=== PATIENT | female | born 1945 | race Caucasian/White ===

== ENCOUNTER → 2020-09-04 09:21 | Outpatient (CLI) | payer MEDICARE, SELFPAY | PROVIDERS: PCP Family Medicine; Visit Provider Family Medicine | DX: Z03.818 Encounter for observation for suspected exposure to other biological agents ruled out (principal) | CPT/HCPCS: U0003 ==

== ENCOUNTER → 2021-07-10 13:38 | Outpatient (CLI) | payer MEDICARE, SELFPAY | PROVIDERS: PCP Family Medicine; Visit Provider Family Medicine | DX: G47.33 Obstructive sleep apnea (adult) (pediatric) (principal) | CPT/HCPCS: 95806 ==

== ENCOUNTER 2021-11-28 09:13 | Emergency (ER) | payer MEDICARE, SELFPAY ==
[2021-11-28 09:45] VITALS: BP 140/88; PULSE 76; RESP 22; TEMP 36.8; O2SAT 97; BMI 23.7
[2021-11-28 10:13] LABS: Apearance,Urine Clear (Clear); Bilirubin,Urine Negative (Negative); Blood, Urine Negative (Negative); Color,Urine Yellow (Yellow); Glucose,Urine (UA) Negative (Negative); Ketones,Urine Negative (Negative); Protein,Urine 1+ (Negative); Specific Gravity, Urine 1.025 (1.005-1.030)
[2021-11-28 10:14] LABS: UTC Leukocyte Esterase,Urine Negative (Negative); UTC Nitrate,Urine Negative (Negative); Urobilinogen,Urine 0.2 EU/dl (0.2)
--- NOTE | 2021-11-28 10:17 | HMH.EDUTC ---
[facility] Disposition Clinical Impression: Viral syndrome Disposition: Home, Self-Care Condition on Discharge: Good Instructions: Diarrhea, DI for Viral Syndrome, DI for Nausea -- Adult Additional Instructions: Drink extra fluids with and between meals. If you have difficulty drinking, try very small amounts of water or suck on ice chips. ? Avoid fruit juices, as these do not replace minerals and can actually increase diarrhea. ? Children and adults can use sports drinks to replenish electrolytes. Younger children and infants should use products formulated for children, like oral rehydration solutions. ? Eat food in small amounts and let your stomach recover. ? Get lots of rest. You may feel tired or weak. ? No greasy or fried foods for the next 24-48 hours BRAT diet Bananas Rice Apples and [place] ? Make sure to drink plenty of liquids ? Return if needed ? Straight to ER if any life threatening symptoms ? Zofran as prescribed ? You was given an outpatient order for diarrhea panel, please collect specimen and bring back to outpatient lab then call back to the [facility] or follow up with family doctor for results ? Follow up with family doctor in the next 48-72 hours if no improvement or any worsening of symptoms You were tested for today for COVID19 your test result should be back in the next 24-48 hours, you may check the [facility] my Health portal for your results if you have trouble logging on or seeing your results you may call You was given a handout with instructions for Self Quarantine and Self isolation for while you wait on test results and what to do if they are positive If you are positive the Health Dept will be contacting you also Make sure to take your Vitamins Vit. C Vit D and Zinc if you can take them Prescriptions: Dicyclomine HCl [Bentyl 10mg capsule] 10 mg PO TID PRN #10 cap PRN Reason: Cramping Transmission Status: Pending to [facility] Ondansetron [Zofran 4mg ODT] 4 mg PO TIDP PRN #9 tab PRN Reason: Nausea Transmission Status: Pending to [facility] Referrals: Percy Del Cid [Primary Care Provider] - As needed Medical Decision Making - [place] Inquiry Pt receiving controlled substance: No [place] was queried for this patient: No Vital Signs: 11/28/21 09:45 Temperature 98.2 F Temperature Source Oral Pulse Rate [Right Brachial] 76 Respiratory Rate 22 Blood Pressure [Right Arm] 140/88 Blood Pressure Mean [Right Arm] 105 Blood Pressure Source [Right Arm] Automatic Cuff Blood Pressure Position [Right Arm] Sitting 02 Sat by Pulse Oximetry 97 Oxygen Delivery Method Room Air - Lab Data Lab Results 11/28/21 09:55: Urine Color Yellow, Urine Appearance Clear, Urine pH 5.0, Ur Specific [place] 1.025, Urine Protein 1+, Urine Glucose (UA) Negative, Urine Ketones Negative, Urine Blood Negative, Urine Nitrate Negative, Urine Bilirubin Negative, Urine Urobilinogen 0.2, Ur Leukocyte Esterase Negative Orders (Tests/Meds): ED MEDICATIONS Discontinued Medications Generic Name Dose Route Start Last Admin Trade Name Freq PRN Reason Stop Dose Admin Dicyclomine HCl 10 mg 11/28/21 10:32 11/28/21 10:41 Dicyclomine 10mg Capsule PO 11/28/21 10:33 10 mg ONCE ONE Administration Ondansetron HCl 4 mg 11/28/21 10:32 11/28/21 10:41 Ondansetron 4mg Odt SL 11/28/21 10:33 4 mg ONCE ONE Administration ORDERS Category Date Time Status Covid-19 Nasal PCR ([facility]) Routine Lab 11/28/21 10:37 Ordered [facility] HPI - General Stated complaint: diarrhea, nauseous Time Seen by Provider: 11/28/21 10:17 Mode of Arrival: Ambulatory Source of Information: Patient Limitations: No Limitations Description of Symptoms (Recalled from Triage Doc. by RN): PATIENT C/O DIARRHEA X 48 HOURS, NAUSEA X 12 HOURS, AND HEADACHE HEENT Symptoms (Recalled from RN notes): Yes Resp Symptoms (Recalled from RN notes): No Skin Symptoms (Recalled from RN notes): No MS Symptoms (Recalled from RN notes): No Functional
[2021-11-28 10:47] VITALS: BP 140/88; PULSE 76; RESP 22; TEMP 36.8; O2SAT 97
[2021-11-28 17:30] LABS: Adenovirus F 40/41, stool Not Detected (NotDetected); Astrovirus Not Detected (NotDetected); Campylobacter Not Detected (NotDetected); Clostridium Difficile A/B, PCR Not Detected (NotDetected); Cryptosporidium Not Detected (NotDetected); Cyclospora Cayetanesis Not Detected (NotDetected); Entamoeba histolytica Not Detected (NotDetected); Enteroaggregative E coli Not Detected (NotDetected); Enteropathogenic E coli Not Detected (NotDetected); Enterotoxigenic E coli Not Detected (NotDetected); Giardia lamblia Not Detected (NotDetected); Norovirus Not Detected (NotDetected); Plesimonas Shigalloides, PCR Not Detected (NotDetected); Rotavirus A Not Detected (NotDetected); Salmonella, PCR Not Detected (NotDetected); Sapovirus Not Detected (NotDetected); Shiga-like toxin E coli Not Detected (NotDetected); Shigella Enterovasive E coli Not Detected (NotDetected); Vibrio Cholerae Not Detected (NotDetected); Vibrio, PCR Not Detected (NotDetected); Yersinia Entercolitica, PCR Not Detected (NotDetected)
[2021-11-28 19:01] LABS: UTC Influenza A Antigen Negative (Negative); UTC Influenza B Antigen Negative (Negative)
== END 2021-11-28 10:55 | disposition home or self-care (01) ==
PROVIDERS: Emergency Provider Nurse Practitioner; PCP Family Medicine
DX: B34.9 Viral infection, unspecified (principal); Z20.822 Contact with and (suspected) exposure to COVID-19; I10 Essential (primary) hypertension; E78.5 Hyperlipidemia, unspecified; Z87.891 Personal history of nicotine dependence; R10.0 Acute abdomen; R19.7 Diarrhea, unspecified
CPT/HCPCS: 81003; 87507; 87804; 99202; C9803; G0463; U0003; U0005

== ENCOUNTER → 2022-01-19 09:20 | Outpatient (CLI) | payer MEDICARE, SELFPAY ==
--- NOTE | 2022-01-19 09:23 | XR_ITS ---
FINAL REPORT TECHNIQUE: Bone densitometry calculations of the lumbar spine and left hip were obtained. CLINICAL HISTORY: . post menopausal FINDINGS: Using L1-4, the bone mineral density of the spine is 0.853 g/cm2, corresponding to T-score of -1.8. Using the right hip, the bone mineral density of the femoral neck is 0.561 g/cm2, corresponding to a T-score of -2.6. Using the left forearm, the bone mineral density of the distal 1/3 is 0.495 g/cm2, corresponding to a T-score of -3.3. IMPRESSION: Osteoporosis: Lowest T-score is at or below -2.5. This patient's T-score meets the World Health Organization criteria for osteoporosis. Reviewed, Interpreted and Dictated by Francisco Javier Parada III, MD Transcribed by Leila Cristina Authenticated by Francisco Javier Parada III, MD on 01/19/2022 11:45:51 AM [facility]
== END ==
PROVIDERS: PCP Family Medicine; Visit Provider Family Medicine
DX: Z78.0 Asymptomatic menopausal state (principal)
CPT/HCPCS: 77080

== ENCOUNTER 2022-03-05 10:00 | Outpatient (RCR) | payer MEDICARE, SELFPAY | END 2022-03-05 10:05 | disposition home or self-care (01) | LOC: PT 10:00 | PROVIDERS: PCP Family Medicine; Visit Provider Orthopaedic Surgery | DX: M17.12 Unilateral primary osteoarthritis, left knee (principal) | CPT/HCPCS: 97110; 97163; 97164 ==

== ENCOUNTER → 2022-03-18 15:32 | Outpatient (CLI) | payer MEDICARE, SELFPAY ==
--- NOTE | 2022-03-18 15:37 | XR_ITS ---
FINAL REPORT CLINICAL HISTORY: Hammertoe pain FINDINGS: RIGHT FOOT Three weight-bearing views of the right foot demonstrate no acute fracture or dislocation. There is mild medial subluxation of the 2nd and 3rd proximal phalanges. The soft tissues are unremarkable. IMPRESSION: No acute bony abnormality. Mild medial subluxation of the 2nd and 3rd proximal phalanges. Reviewed, Interpreted and Dictated by Denzel Shipman MD Transcribed by Leila Cristina Authenticated by Denzel Shipman MD on 03/18/2022 06:04:17 PM [facility]
== END ==
PROVIDERS: Visit Provider Podiatrist
DX: M79.671 Pain in right foot (principal)
CPT/HCPCS: 73630

== ENCOUNTER 2024-11-03 07:59 | Emergency (ER) | payer MEDICARE, SELFPAY ==
[2024-11-03 08:28] VITALS: BP 158/73; PULSE 97; RESP 20; TEMP 37.2; O2SAT 97; BMI 25.4
--- NOTE | 2024-11-03 08:28 | ED_ITS ---
Discharge Plan Disposition Patient Disposition: Home, Self-Care Condition: Good Prescriptions Prescriptions: New amoxicillin 875 mg tablet 875 mg PO Q12H Qty: 20 0RF benzonatate 100 mg capsule 100 mg PO TIDP PRN (Reason: Cough) Qty: 30 0RF No Action hydrochlorothiazide 25 mg tablet 25 mg PO DAILY pantoprazole 40 mg tablet,delayed release (DR/EC) 40 mg PO DAILY metoprolol tartrate 50 mg tablet 50 mg PO DAILY pravastatin 40 mg tablet 40 mg PO DAILY Excedrin Extra Strength 250-250-65 mg tablet 1 tab PO Q4-6H PRN tramadol 50 mg tablet 50 mg PO BID alendronate 70 mg tablet 70 mg PO WEEKLY raloxifene 60 mg tablet 60 mg PO DAILY methylprednisolone [Medrol (Magno)] 4 mg tablets,dose pack 4 mg PO DAILY Qty: 21 0RF timolol maleate 0.5 % drops 1 drp OP BID Patient Comments: INSTILL 1 DROP IN BOTH EYES TWICE DAILY levothyroxine 88 mcg tablet 88 mcg PO DIRECTED Patient Comments: TAKE ONE TABLET BY MOUTH EVERY DAY Referrals Follow up/Referrals: Percy Del Cid [Primary Care Provider] - See instructions Activity Restrictions/Add. Instructions Additional Instructions/Restrictions: Drink plenty of fluids. Take tylenol for pain or fever. Take the medications as directed. Follow up with your regular doctor. GO TO THE ER FOR ANY WORSENING SYMPTOMS Clinical Impressions Clinical Impression: Acute viral syndrome, Sinusitis Instructions Patient Instructions: Sinusitis, DI for Sinusitis Print Language Print Language: Armenian Discharge ED Provider: Willie Gonzalez [facility] General Stated complaint: headache, chills Time Seen by Provider: 11/03/24 08:23 History of Present Illness Provider Complaint: She states that for the past 1 day she has had worsening sinus congestion, malaise, low grade fever and chills. Related Data Home Medications ?Medication ?Instructions ?Recorded ?Confirmed [id number]-[id number] 250 1 tab PO Q4-6H PRN 09/17/21 12/27/23 mg-250 mg-65 mg tablet (Excedrin Extra Strength) hydrochlorothiazide 25 mg tablet 25 mg PO DAILY 09/17/21 11/03/24 metoprolol tartrate 50 mg tablet 50 mg PO DAILY 09/17/21 12/27/23 pantoprazole 40 mg tablet,delayed 40 mg PO DAILY 09/17/21 12/27/23 release pravastatin 40 mg tablet 40 mg PO DAILY 09/17/21 11/03/24 tramadol 50 mg tablet 50 mg PO BID 09/17/21 11/03/24 alendronate 70 mg tablet 70 mg PO WEEKLY 04/27/22 12/27/23 raloxifene 60 mg tablet 60 mg PO DAILY 04/27/22 12/27/23 timolol maleate 0.5 % eye drops 1 drp ophthalmic (eye) BID 06/22/22 12/27/23 levothyroxine 88 mcg tablet 88 mcg PO DIRECTED 11/03/24 11/03/24 Previous Rx's ?Medication ?Instructions ?Recorded methylprednisolone 4 mg tablets in 4 mg PO DAILY pain #21 tabs 12/13/23 a dose pack (Medrol (Magno)) amoxicillin 875 mg tablet 875 mg PO Q12H #20 tabs 11/03/24 benzonatate 100 mg capsule 100 mg PO TIDP PRN Cough #30 caps 11/03/24 Allergies Allergy/AdvReac Type Severity Reaction Status Date / Time No Known Allergies Allergy Verified 12/27/23 13:10 [facility] Disclaimer: The information contained in this section may have been updated after the patient was seen, as this information can be updated by other users. Social History Smoking Status: Former smoker alcohol intake: never substance use type: denies use current occupational status: other Travel in the last 8 weeks: None household members: none housing: house Have you lived/traveled outside [place] in past 30 days?: No Contact w/someone who lives/traveled outside US past 30 days?: No Exposure to someone with infectious disease in past 14 days?: No Do you have a fever (greater than 100.4 F or 38 C)?: No Have you tested positive for COVID-19: No Exposed to someone with COVID-19 in past 14 days?: No Do you have a sore throat?: No Do you have a cough?: No Do you have any weakness?: No Do you have any diarrhea?: No Are you experiencing any unusual bleeding?: No Do you have any muscle aches/pain?: No Do you have any abdominal pain?: No Are you experiencing loss of taste or smell?: No ROS Obtained: Yes All systems reviewed & no additional complaints except as documented Constitutional Constitutional: Reports chills and Reports fever(s) Eyes Eyes: Denies eye discharge ENT Ears, Nose, Mouth, and Throat: Reports as per HPI Cardiovascular Cardiovascular: Denies chest pain Respiratory Respiratory: Denies chest congestion and Reports cough Gastrointestinal Gastrointestingal: Reports nausea; Denies abdominal pain, constipation, cramping, diarrhea or vomiting Musculoskeletal Musculoskeletal: Denies arthralgias Integumentary/Breasts Skin/Breast: Denies rash Neurologic Neurologic: Denies paresthesias Physical Exam General General appearance: alert and in no apparent distress Head Head exam: atraumatic, normocephalic and normal inspection Eye Eye exam: Present normal appearance, PERRL and EOMI ENT ENT exam: Present normal exam, normal oropharynx, mucous membranes moist, TM's normal bilaterally and normal external ear exam Neck Neck exam: Present normal inspection, full ROM and trachea midline; Absent m eningismus or lymphadenopathy Chest Chest inspection: Present normal inspection and symmetric chest wall rise; Absent tenderness Respiratory Respiratory exam: Present normal lung sounds bilaterally; Absent respiratory distress Cardiovascular Cardiovascular exam: Present regular rate and normal rhythm; Absent JVD Abdominal Exam Abdominal exam: Present soft and normal bowel sounds; Absent distention, te nderness or guarding Extremities Exam Extremities exam: Present normal inspection, full ROM and normal capillary refill; Absent calf tenderness Back Exam Back exam: Present normal inspection; Absent tenderness Neurological Exam Neurological exam: Present alert and oriented X3 Psychiatric Psychiatric exam: Present normal affect and normal mood Skin Skin exam: Present warm, dry, intact and normal color Lymphatic Lymphatic Findings: no adenopathy Medical Decision Making Medical Records Medical records reviewed: No I reviewed the patient's medical records. Screening: Per USPSTF and CDC recommendations, given the prevalence of disease in our region, it is our hospital?s policy to screen for HIV and viral Hepatitis for all patients aged 18 and over and those with ongoing risk factors. [place] Inquiry Pt receiving controlled substance: No
--- NOTE | 2024-11-03 08:38 | XR_ITS ---
FINAL REPORT CLINICAL HISTORY: R/O PNA FINDINGS: 2 views of the chest were obtained . The heart is normal in size. The mediastinum is within normal limits. The lungs are hyperexpanded consistent with COPD but otherwise clear. There is no pneumothorax. Osseous structures are unremarkable. IMPRESSION: No acute cardiopulmonary process. Reviewed, Interpreted and Dictated by Francisco Javier Parada III, MD Transcribed by Marlen Rondon Authenticated and [facility]
[2024-11-03 08:42] LABS: UTC Influenza A Antigen Negative (Negative); UTC Influenza B Antigen Negative (Negative)
[2024-11-03 09:08] VITALS: BP 158/73; PULSE 97; RESP 20; TEMP 37.2
[2024-11-03 09:17] LABS: Influenza A, PCR Not Detected (NotDetected); Influenza B, PCR Not Detected (NotDetected)
[2024-11-03 09:59] LABS: Coronavirus 19, PCR Detected (NotDetected)
[2024-11-03 10:11] LABS: RSV Rapid Ab Screen Negative (Negative)
== END 2024-11-03 09:16 | disposition home or self-care (01) ==
PROVIDERS: Emergency Provider Nurse Practitioner Family; PCP Family Medicine
DX: J32.9 Chronic sinusitis, unspecified (principal); B34.9 Viral infection, unspecified; R50.9 Fever, unspecified; R51.9 Headache, unspecified; R09.81 Nasal congestion; R53.81 Other malaise; R05.9 Cough, unspecified
CPT/HCPCS: 71046; 87636; 87804; 87807; 99212; G0381

== ENCOUNTER 2025-01-17 12:59 | Emergency (ER) | payer MEDICARE, SELFPAY ==
[2025-01-17 12:59] VITALS: BP 137/119; PULSE 60; RESP 18; TEMP 36.6; O2SAT 98; BMI 26.5
--- NOTE | 2025-01-17 13:00 | CT_ITS ---
FINAL REPORT TECHNIQUE: Thin section axial CT with sagittal and coronal reconstructions without contrast This study was performed with techniques to keep radiation doses as low as reasonably achievable, (ALARA). Individualized dose reduction techniques using automated exposure control or adjustment of mA and/or kV according to the patient's size were employed. CLINICAL HISTORY: fall, struck forehead COMPARISON: None FINDINGS: No fracture or malalignment is seen. No obvious bony spinal canal stenosis is present. There is moderate diffuse degenerative disc disease, with moderate changes of facet arthropathy. IMPRESSION: Degenerative changes without acute bony abnormality. Reviewed, Interpreted and Dictated by Onesimo Talavera MD Transcribed by Koki Willoughby Authenticated and [facility]
--- NOTE | 2025-01-17 13:00 | CT_ITS ---
FINAL REPORT TECHNIQUE: Axial images through the right shoulder were obtained, followed by multiplanar reconstructions. This study was performed with techniques to keep radiation doses as low as reasonably achievable (ALARA). Individualized dose reduction techniques using automated exposure control or adjustment of mA and/or kV according to the patient's size were employed. CLINICAL HISTORY: shoulder/proximal humerus pain COMPARISON: None FINDINGS: CT RIGHT SHOULDER: There is a comminuted and impacted fracture of the humeral head and humeral neck. There is 8 mm of anterior displacement and 15 mm of overlap/impaction. The fracture extends into both the greater and lesser tuberosities, and involves the entire humeral head. No dislocation is noted. The acromioclavicular joint is intact. IMPRESSION: Mildly displaced and impacted humeral head and neck fracture. Reviewed, Interpreted and Dictated by Onesimo Talavera MD Transcribed by Koki Willoughby Authenticated and . [facility]
--- NOTE | 2025-01-17 13:00 | CT_ITS ---
FINAL REPORT TECHNIQUE: Noncontrast exam This study was performed with techniques to keep radiation doses as low as reasonably achievable, (ALARA). Individualized dose reduction techniques using automated exposure control or adjustment of mA and/or kV according to the patient's size were employed. CLINICAL HISTORY: fall, struck forehead COMPARISON: None FINDINGS: Mild atrophy and chronic ischemic white matter changes are noted. There is a hypodense focus in the right riri, that most likely represents an age-indeterminate lacunar infarct. No cortical edema is present. There is no mass or hemorrhage. Ventricles are normal. Bone windows show no skull fracture or obvious obstructive lesion. IMPRESSION: Hypodense focus in the right riri, that most likely represents an age-indeterminate lacunar infarct. Consider MR follow-up for further evaluation. No hemorrhage or edema identified intracranially. Reviewed, Interpreted and Dictated by Onesimo Talavera MD Transcribed by Koki Willoughby Authenticated and . [facility]
[2025-01-17] MEDS: METHOCARBAMOL 500MG TABLET 1500 MG PO (13:34)
[2025-01-17] MEDS: ONDANSETRON 4MG/2ML VIAL 4 MG IV (13:34)
[2025-01-17] MEDS: KETOROLAC 30MG/ML VIAL 15 MG IV (13:34)
[2025-01-17] MEDS: HYDROMORPHONE 2MG/ML SYRINGE 0.5 MG IV (13:34)
--- NOTE | 2025-01-17 13:43 | PC.NURSE ---
rounded on the pt. the pt voices that she does not need anything at this time. call light is within reach of the pt. son is present at the bedside.
--- NOTE | 2025-01-17 14:13 | ED_ITS ---
Discharge Plan Disposition Patient Disposition: Home, Self-Care Prescriptions Prescriptions: New hydrocodone-acetaminophen 5-325 mg tablet 1 tab PO Q6H PRN (Reason: pain) Qty: 14 0RF ondansetron 4 mg tablet,disintegrating 4 mg PO Q6H PRN (Reason: nausea and vomiting) Qty: 10 0RF methocarbamol 750 mg tablet 1,500 mg PO TID 5 Days Qty: 30 0RF No Action hydrochlorothiazide 25 mg tablet 25 mg PO DAILY pantoprazole 40 mg tablet,delayed release (DR/EC) 40 mg PO DAILY metoprolol tartrate 50 mg tablet 50 mg PO DAILY pravastatin 40 mg tablet 40 mg PO DAILY Excedrin Extra Strength 250-250-65 mg tablet 1 tab PO Q4-6H PRN tramadol 50 mg tablet 50 mg PO BID alendronate 70 mg tablet 70 mg PO WEEKLY raloxifene 60 mg tablet 60 mg PO DAILY methylprednisolone [Medrol (Magno)] 4 mg tablets,dose pack 4 mg PO DAILY Qty: 21 0RF timolol maleate 0.5 % drops 1 drp OP BID Patient Comments: INSTILL 1 DROP IN BOTH EYES TWICE DAILY levothyroxine 88 mcg tablet 88 mcg PO DIRECTED Patient Comments: TAKE ONE TABLET BY MOUTH EVERY DAY amoxicillin 875 mg tablet 875 mg PO Q12H Qty: 20 0RF benzonatate 100 mg capsule 100 mg PO TIDP PRN (Reason: Cough) Qty: 30 0RF Referrals Follow up/Referrals: Mehran Gotti DO [Staff Physician] - See instructions Percy Del Cid [Primary Care Provider] - See instructions Activity Restrictions/Add. Instructions Additional Instructions/Restrictions: Call your family doctor to establish care for this visit to the emergency department and schedule follow-up within 48 hours to ensure improvement. If you have any worsening of your condition or any other concerning signs or symptoms, return to the emergency department or your primary care doctor for further eval uation. Clinical Impressions Clinical Impression: Closed right humeral fracture Print Language Print Language: Bengali Discharge ED Provider: Clinton Oconnor General Adult HPI General Chief complaint: Fall Stated complaint: fall Time Seen by Provider: 01/17/25 13:03 Mode of Arrival: EMS Source of Information: Patient Limitations: No Limitations Description of Symptoms (Recalled from ER Triage Doc. by RN): Patient reports tripping and falling at home injuring her right shoulder. History of Present Illness HPI narrative: Please note that above description of symptoms, in this electronic medical record under categorization of recalled from ER triage doctor by RN are reflective of an initial nursing assessment, however, is not reflective of my full history and physical exam that was personally taken and clarified. Consequentially, this preceding description of symptoms, which may include the patient's categorized chief complaint in the EMR, do not reflect my personal clinical impression, and the ultimate description of history of present illness and patient stated complaints should be deferred to this section of the note. Unless stated otherwise or congruent with this section of the note, additional signs, symptoms, or incongruence should be interpreted as inaccurate with my clinical impression. Related Data Home Medications ?Medication ?Instructions ?Recorded ?Confirmed kbdgsfc-bepahkcvvqecb-heseiher 250 1 tab PO Q4-6H PRN 09/17/21 12/27/23 mg-250 mg-65 mg tablet (Excedrin Extra Strength) hydrochlorothiazide 25 mg tablet 25 mg PO DAILY 09/17/21 11/03/24 metoprolol tartrate 50 mg tablet 50 mg PO DAILY 09/17/21 12/27/23 pantoprazole 40 mg tablet,delayed 40 mg PO DAILY 09/17/21 12/27/23 release pravastatin 40 mg tablet 40 mg PO DAILY 09/17/21 11/03/24 tramadol 50 mg tablet 50 mg PO BID 09/17/21 11/03/24 alendronate 70 mg tablet 70 mg PO WEEKLY 04/27/22 12/27/23 raloxifene 60 mg tablet 60 mg PO DAILY 04/27/22 12/27/23 timolol maleate 0.5 % eye drops 1 drp ophthalmic (eye) BID 06/22/22 12/27/23 levothyroxine 88 mcg tablet 88 mcg PO DIRECTED 11/03/24 11/03/24 Previous Rx's ?Medication ?Instructions ?Recorded methylprednisolone 4 mg tablets in 4 mg PO DAILY pain #21 tabs 12/13/23 a dose pack (Medrol (Magno)) amoxicillin 875 mg tablet 875 mg PO Q12H #20 tabs 11/03/24 benzonatate 100 mg capsule 100 mg PO TIDP PRN Cough #30 caps 11/03/24 hydrocodone 5 mg-acetaminophen 325 1 tab PO Q6H PRN pain #14 tabs 01/17/25 mg tablet methocarbamol 750 mg tablet 1,500 mg (2 x 750 mg) PO TID 5 01/17/25 days #30 tabs ondansetron 4 mg disintegrating 4 mg PO Q6H PRN nausea and 01/17/25 tablet vomiting #10 tabs Allergies Allergy/AdvReac Type Severity Reaction Status Date / Time No Known Allergies Allergy Verified 12/27/23 13:10 [facility] Disclaimer: The information contained in this section may have been updated after the patient was seen, as this information can be updated by other users. Social History Smoking Status: Never smoker alcohol intake: never substance use type: denies use current occupational status: other Travel in the last 8 weeks: None household members: none housing: house Other Medical History Have you received the Pneumonia Vaccine: Yes ROS Obtained: Yes All systems reviewed & no additional complaints except as documented Physical Exam General General appearance: alert Head Head exam: atraumatic and normocephalic Eye Eye exam: Present normal appearance, PERRL and EOMI Neck Neck exam: Present normal inspection, full ROM and trachea midline Respiratory Respiratory exam: Absent respiratory distress, wheezes, stridor, accessory muscle use or prolonged expiratory phase Cardiovascular Cardiovascular exam: Present other (Pulses equal symmetric in upper and lower extremities) Abdominal Exam Abdominal exam: Present soft; Absent distention, tenderness or pulsatile mass Extremities Exam Extremities exam: Present tenderness; Absent full ROM or edema Neurological Exam Neurological exam: Present alert, oriented X3 and CN II-XII intact; Absent motor sensory deficit Skin Skin exam: Present warm and dry; Absent diaphoresis or erythema Medical Decision Making Medical Records Medical records reviewed: Yes I reviewed the patient's medical records. Screening: Per USPSTF and CDC recommendations, given the prevalence of disease in our region, it is our hospital?s policy to screen for HIV and viral Hepatitis for all patients aged 18 and over and those with ongoing risk factors. [place] Inquiry Pt receiving controlled substance: No [place] was queried for this patient: No Vital Signs: 01/17/25 12:59 Temperature 97.8 F Temperature Source Oral Pulse Rate [Radial] 60 Respiratory Rate 18 Blood Pressure [Left Arm] 137/119 H Blood Pressure Mean [Left Arm] 125 Blood Pressure Source [Left Arm] Automatic Cuff Blood Pressure Position [Left Arm] Sitting 02 Sat by Pulse Oximetry 98 Oxygen Delivery Method Room Air Orders (Tests/Meds): ED MEDICATIONS Discontinued Medications Generic Name Dose Route Start Last Admin Trade Name Cassidy PRN Reason Stop Dose Admin Hydromorphone HCl 0.5 mg 01/17/25 13:00 01/17/25 13:34 Hydromorphone 2mg/Ml Syringe IV 01/17/25 13:01 0.5 mg ONCE ONE Administration Ketorolac Tromethamine 15 mg 01/17/25 13:00 01/17/25 13:34 Ketorolac 30mg/Ml Vial IV 01/17/25 13:01 15 mg ONCE ONE Administration Methocarbamol 1,500 mg 01/17/25 13:00 01/17/25 13:34 Methocarbamol 500mg Tablet PO 01/17/25 13:01 1,500 mg ONCE ONE Administration Ondansetron HCl 4 mg 01/17/25 13:00 01/17/25 13:34 Ondansetron 4mg/2ml Vial IV 01/17/25 13:01 4 mg ONCE ONE Administration ORDERS Category Date Time Status CT cervical spine wo con Stat Cat Scan 01/17/25 13:[address] head/brain wo con Stat Cat Scan 01/17/25 13:[address] shoulder RT wo con Stat Cat Scan 01/17/25 13:00 Completed HIV Combo Stat Lab 01/17/25 13:30 Received Hepatitis C Ab Qual. W/ RFX Stat Lab 01/17/25 13:30 Received Medical Decision Narrative: 79-year-old female presenting with right upper extremity pain. Patient states that she stood up, tripped over her feet because her right foot was asleep from sitting and she fell onto her right side. Significant pain, came to the emergency department for further evaluation. Having significant pain on evaluation. history was obtained via conversation with her and EMS. On arrival, patient hemodynamically stable, alert, oriented x4, appropriate, GCS 15, moving all extremities spontaneously, pupils equal and reactive to light. Full physical exam performed and significant for well-appearing female who is in mild to moderate distress secondary to pain. Right upper extremity significantly tender at the level of the proximal humerus with induration. Neurovascularly intact upper extremity. No evidence of trauma or pain elsewhere. Placed in cervical collar out of abundance of caution. Differential includes fracture, sprain, strain, dislocation, intracranial hemorrhage, critical cervical spine injury, among others. Patient placed on continuous cardiac monitoring and continuous pulse ox with initial blood pressure 137/119, heart rate 60, saturation 98% on room air. Patient given Toradol, Dilaudid, Zofran, Robaxin for pain. Independent interpretation of imaging with comminuted proximal right humerus fracture. No evidence of dislocation. Patient was placed in sling, I discussed the case at length with orthopedic, recommended outpatient follow-up. Because patient at baseline without signs or symptoms of clinical decompensation, deemed appropriate for discharge. Results were relayed to patient who voiced understanding and were agreeable to outpatient management and follow up. I discussed my clinical impression with patient and answered all questions. At this time, the evidence for any other entities in the differential is insufficient to warrant any further testing or ED observation. This was explained as well. Advisory was given that persistent or worsening symptoms require further evaluation. I confirmed the understanding of this discussion. Methocarbamol, [place], Zofran sent to pharmacy. Counter Pocket Trimmer disclaimer Much of this encounter note is an electronic technical support engineer spoken language to printed text. Electronic technical support engineer of the spoken language may permit errors. Although I have reviewed the note, some errors may still exist. Critical Care Critical Care Time Critical Care Time: No
[2025-01-17 14:42] VITALS: BP 138/72; PULSE 78; RESP 16; TEMP 36.7; O2SAT 99
[2025-01-17 14:44] VITALS: BP 138/72; PULSE 78; RESP 16; TEMP 36.7; O2SAT 99
[2025-01-17 15:58] LABS: HIV Combo NEGATIVE (Negative)
[2025-01-17 16:06] LABS: Hepatitis C Ab Qual. W/ RFX NEGATIVE (Negative)
== END 2025-01-17 14:45 | disposition home or self-care (01) ==
PROVIDERS: Emergency Provider Emergency Medicine; PCP Family Medicine
DX: S42.301A Unspecified fracture of shaft of humerus, right arm, initial encounter for closed fracture (principal); W01.198A Fall on same level from slipping, tripping and stumbling with subsequent striking against other object, initial encounter
CPT/HCPCS: 70450; 72125; 73200; 86803; 87389; 96374; 96375; 99285; J1171; J1885; J2405

== ENCOUNTER 2025-01-23 10:13 | Outpatient (CLI) | payer MEDICARE, SELFPAY ==
--- NOTE | 2025-01-23 10:16 | XR_ITS ---
FINAL REPORT CLINICAL HISTORY: Rt Shoulder pain from fall last wednesday COMPARISON: 01/17/2025 FINDINGS: RIGHT SHOULDER Three views were obtained. There is a comminuted impacted fracture of the humeral neck and head with mild displacement. No gross changes are seen from prior CT. There is no subluxation or dislocation. IMPRESSION: Stable appearance of comminuted proximal humeral fracture. Reviewed, Interpreted and Dictated by Onesimo Talavera MD Transcribed by Mireya Oakley Authenticated and [facility]
== END 2025-01-23 23:59 | disposition home or self-care (01) ==
LOC: RAD 10:15
PROVIDERS: PCP Family Medicine; Visit Provider Orthopaedic Surgery
DX: M25.511 Pain in right shoulder (principal); S42.301A Unspecified fracture of shaft of humerus, right arm, initial encounter for closed fracture
CPT/HCPCS: 73030

== ENCOUNTER 2025-02-06 10:03 | Outpatient (CLI) | payer MEDICARE, SELFPAY ==
--- NOTE | 2025-02-06 10:10 | XR_ITS ---
FINAL REPORT CLINICAL HISTORY: right humerus fx..PAIN COMPARISON: 01/23/2025 FINDINGS: 2 views of the right humerus were obtained. There is a transverse, mildly comminuted humeral head and neck fracture with impaction deformity. Displacement is stable. Fracture line remains evident. No other fracture is identified. IMPRESSION: Stable proximal humeral fracture. Reviewed, Interpreted and Dictated by Onesimo Talavera MD Transcribed by Marlen Rondon Authenticated and [facility]
== END 2025-02-06 23:59 | disposition home or self-care (01) ==
LOC: RAD 10:03
PROVIDERS: PCP Family Medicine; Visit Provider Physician Assistant Surgical
DX: M79.621 Pain in right upper arm (principal); S42.301A Unspecified fracture of shaft of humerus, right arm, initial encounter for closed fracture
CPT/HCPCS: 73060

== ENCOUNTER 2025-03-06 13:31 | Outpatient (CLI) | payer MEDICARE, SELFPAY ==
--- NOTE | 2025-03-06 13:34 | XR_ITS ---
FINAL REPORT CLINICAL HISTORY: rt humeral fx f/u COMPARISON: 02/07/2024 FINDINGS: Four views of the right shoulder were obtained. There is interval healing of the previously seen right humeral neck fracture with some callus formation. No new osseous abnormality is seen. There is no dislocation. Degenerative joint disease is unchanged. Soft tissues are unremarkable. IMPRESSION: Interval healing of right humeral neck fracture with some callus formation. Reviewed, Interpreted and Dictated by Nakia Ravi MD Transcribed by Chelsey Cota Authenticated and [facility]
== END 2025-03-06 23:59 | disposition home or self-care (01) ==
LOC: RAD 13:32
PROVIDERS: PCP Family Medicine; Visit Provider Physician Assistant Surgical
DX: M25.511 Pain in right shoulder (principal); S42.301A Unspecified fracture of shaft of humerus, right arm, initial encounter for closed fracture
CPT/HCPCS: 73030

== ENCOUNTER 2025-03-21 09:51 | Outpatient (RCR) | payer MEDICARE, SELFPAY ==
--- NOTE | 2025-03-21 11:58 | HMH.OTOPEV ---
OT Inpatient Evaluation Rehab OT Outpatient Eval Start: 03/21/25 10:55 Freq: Status: Active Protocol: Document 03/21/25 10:55 RMARSHALL (Rec: 03/21/25 11:55 [id number] E-signed By Eliseo Brannon, OT Outpatient Therapy Subjective History Subjective History Pt is an 79 year old female who reports to therapy for R UE/shoulder evaluation. Pt had a fall at home on January 17, 2025 resulting in a right humeral fx. Pt did not require surgical intervention. According to patient her fracture is healing well, but is not completely healed. Pt is right hand dominant. She is primarily out of her sling, but does still wear it in public at times for safety. Pt demonstrates with significant decline in AROM and strength at right shoulder . Pt's AROM and strength at right elbow is within functional limits. Therapist will continue to see patient in order to address all deficits at right shoulder. New diagnosis of cancer in past 12 No months? Chief Complaint Pain,Stiff,Weakness Symptom Type Ache,Throb,Sharp,Dull Symptoms Relieved By Rest/Positioning Symptoms Aggravated By Physical Activity,Lifting Prior Functional Limitations None Current Functional Limitations Reaching,Lifting,Housework, Dressing,Driving,Sleeping, Recreation Activity Symptom Description Intermittent,Activity Dependent Level of pain today (0-10) 0 Pain scale - at its best (0-10) 0 Pain scale - at its worst (0-10) 8 Shoulder/Elbow Eval Shoulder Objective Measurements Shoulder ROM Right Shoulder Abduction Active Range of 80 Motion (degrees) Shoulder Flexion Active Range of Motion 95 (degrees) Query Text: Shoulder External Rotation Active Range 48 of Motion (degrees) Shoulder Internal Rotation Active Range 62 of Motion (degrees) Shoulder MMT Shoulder Abduction Strength Grade 3 Fair Shoulder Flexion Strength Grade 3 Fair Shoulder External Rotation Strength 3 Fair Grade Shoulder Internal Rotation Strength 3 Fair Grade Shoulder Strength Patient Testing Sitting Position Elbow Objective Measurements QuickDASH Activities Please rate your ability to do the following activities in the last week by selecting the number below the appropriate response. 1. Open a tight or new jar. Moderate difficulty 2. Do heavy deputy grand jury (e.g., wash Moderate difficulty foster, floors). 3. Carry a shopping bag or briefcase. Moderate difficulty 4. Wash your back. Moderate difficulty 5. Use a knife to cut food. Severe difficulty 6. Recreational activities in which you Severe difficulty take some force or impact through your arm, shoulder, or hand (e.g., golf, hammering, tennis, etc.). 7. During the past week, to what extent Quite a bit has your arm, shoulder or hand problem interfered with your normal social activities with family, friends, neighbors or groups? 8. During the past week, were you Very limited limited in your work or other regular daily activites as a result of your arm, shoulder or hand problem? 9. Arm, shoulder or hand pain. Moderate 10. Tingling (pins and needles) in your Moderate arm, shoulder or hand. 11. During the past week, how much Mild difficulty difficulty have you had sleeping because of the pain in your arm, shoulder or hand? Quick DASH 36 OT Outpatient Assessment Impairments Problems/Impairments Palpation Tenderness,Impaired Range of Motion,Impaired Strength,Impaired Endurance, Impaired Lifting,Impaired Dressing,Impaired Shower/ Bathing,Impaired Household Care,Impaired Recreational Activities,Impaired Work Activities,Subjective C/O Pain Prognosis Rehab Potential Good Clinical Impression Consistent with Diagnosis Yes Short Term Goals Number of Weeks 4 Increase Range of Motion Yes: Flex: 120 Abd: 120 ER: 70 IR: 70 Increase Strength Yes: 3+/5 throughout R shoulder Increase Endurance Yes: Pt will tolerate R shoulder exercises for ~20 minutes prior to rest. Decrease Subjective C/O Pain Yes: 6/10 at worst Patient to be Ind w/ HEP Yes: AAROM exercises: pulleys, wand, wall wipes, pendulums Improve Quick Dash Score Yes: Activities: 30 or below Skilled Nursing Goals Number of Weeks 8 Increase Range of Motion Yes: Flex: 140 ABd: 140 ER: 80 IR; 70 Increase Strength Yes: 4-/5 throughout right shoulder Increase Endurance Yes: Pt will tolerate R shoulder exercises for ~30 minutes prior to rest. Decrease Subjective C/O Pain Yes: 3/10 at worst Patient to be Ind w/ Advanced HEP Yes: Advanced strengthening exercises Improve Quick Dash Score Yes: Activities: 25 or below Outpatient Therapy Plan of Care Treatment Plan May Include Therapeutic Exercise Including Home Yes Exercise Program Manual Therapy Techniques Yes ADL/Self Care Education Yes Thermal Modalities Yes Electrical Stimulation Yes Ultrasound/Phonophoresis Yes Iontophoresis Yes Orthotics/Bracing/Splinting Yes Massage Yes Eval/Re-Eval Yes Frequency Times per week 2 Duration Number of Weeks 6 Addendums This patient is a candidate for social No or vocational rehab? Patient/Guardian verbally acknowledges Yes understanding of treatment program and consents to further treatment? Patient/Guardian verbally acknowledges Yes understanding of diagnosis, prognosis and goals for treatment? Eval Complexity OT Charge 52912 - Moderate Complexity PHYSICIAN CERTIFICATION: I certify the specified therapy services for Astrid Collado are required, authorized, and reviewed every 30 days.
== END 2025-03-21 23:59 | disposition home or self-care (01) ==
LOC: OT 09:51
PROVIDERS: PCP Family Medicine; Visit Provider Physician Assistant Surgical
DX: S42.301A Unspecified fracture of shaft of humerus, right arm, initial encounter for closed fracture (principal)
CPT/HCPCS: 97140; 97166; 97530

== ENCOUNTER 2025-03-26 11:13 | Outpatient (CLI) | payer MEDICARE, SELFPAY ==
--- NOTE | 2025-03-26 11:18 | XR_ITS ---
FINAL REPORT CLINICAL HISTORY: rt shoulder pain COMPARISON: 03/06/2025 FINDINGS: 3 views of the right shoulder were obtained. There has been interval healing of the humeral neck fracture since the prior exam. No evidence of dislocation or acute osseous abnormality is present. Mild degenerative joint disease is noted. Soft tissues are unremarkable. IMPRESSION: Interval healing of the humeral neck fracture since the prior exam of 02/06/2025. Reviewed, Interpreted and Dictated by Nakia Ravi MD Transcribed by Koki Willoughby Authenticated and [facility]
--- NOTE | 2025-03-26 11:31 | HMH.ITSTN ---
pt states she is not having any issues with her right knee. Pt states she will talk to provider at apt regarding xray. Pt did not want to get right knee xray at this time.
== END 2025-03-26 23:59 | disposition home or self-care (01) ==
LOC: RAD 11:15
PROVIDERS: PCP Family Medicine; Visit Provider Physician Assistant Surgical
DX: M25.511 Pain in right shoulder (principal)
CPT/HCPCS: 73030

== ENCOUNTER 2025-04-04 10:52 | Outpatient (CLI) | payer MEDICARE, SELFPAY ==
--- NOTE | 2025-04-04 10:55 | XR_ITS ---
FINAL REPORT CLINICAL HISTORY: Left knee pain COMPARISON: None FINDINGS: LEFT KNEE Three views demonstrate no acute fracture or dislocation. The joint spaces appear normal. No acute soft tissue abnormality is seen. The knee is held in partial flexion. IMPRESSION: No acute bony abnormality. Reviewed, Interpreted and Dictated by Denzel Shipman MD Transcribed by Keyana Price Authenticated and [facility]
--- NOTE | 2025-04-04 10:55 | XR_ITS ---
FINAL REPORT CLINICAL HISTORY: Left hip pain COMPARISON: None FINDINGS: LEFT HIP Two views of the left hip and an AP pelvis view were obtained. There is no acute fracture or dislocation. The joint spaces are well-preserved. The visualized bony structures are well aligned. There is no acute soft tissue abnormality. IMPRESSION: No acute abnormality identified. Reviewed, Interpreted and Dictated by Denzel Shipman MD Transcribed by Keyana Price Authenticated and [facility]
== END 2025-04-04 23:59 | disposition home or self-care (01) ==
LOC: RAD 10:53
PROVIDERS: PCP Family Medicine; Visit Provider Physician Assistant Surgical
DX: M25.562 Pain in left knee (principal); M25.552 Pain in left hip
CPT/HCPCS: 73502; 73562

== ENCOUNTER 2025-04-18 11:00 | Outpatient (RCR) | payer MEDICARE, SELFPAY | END 2025-04-18 23:59 | disposition home or self-care (01) | LOC: OT 11:00 | PROVIDERS: PCP Family Medicine; Visit Provider Physician Assistant Surgical | DX: S42.301A Unspecified fracture of shaft of humerus, right arm, initial encounter for closed fracture (principal) | CPT/HCPCS: 97014; 97110; 97140; G0283 ==

== ENCOUNTER 2025-05-23 13:39 | Emergency (ER) | payer MEDICARE, SELFPAY ==
[2025-05-23 14:05] VITALS: BP 203/67; PULSE 65; RESP 18; TEMP 36.7; O2SAT 100; BMI 25.6
[2025-05-23 14:31] VITALS: BP 157/69; PULSE 53; O2SAT 98
[2025-05-23 14:37] VITALS: BP 190/81; PULSE 57; RESP 16; TEMP 36.6; O2SAT 98; BMI 25.7
--- NOTE | 2025-05-23 14:40 | ED_ITS ---
<Statement entered by Luiz Torres MD - 05/23/25 17:39> I was consulted by the LAMONTE, and we discussed the complexity of problems being addressed. I approved the treatment and management plan for this patient's care in the emergency department, thus performing a substantial portion of the medical decision making. 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 She reports that the headache she had earlier has completely gone away on its own. I instructed her that the best course of action would be to transfer to the [facility] for neurosurgical evaluation and MRI or if she prefers not to, she could be admitted here for MRI and see what the results show and further oncological workup, however she adamantly Clines this. She is aware of the risks of hospital, but prefers to follow-up with her primary care doctor tomorrow. Given that she is asymptomatic right now and able to verbalize the risks of leaving back to me, this felt reasonable to discharge her. images sent to should she decide to follow-up there in addition she will be given a paper copy of exam results. She is made aware that she can return to the emergency department anytime, especially if she has any concerning symptoms like headache, vision changes numbness weakness or tingling. Luiz Torres MD Discharge Plan Disposition Patient Disposition: Home, Self-Care Prescriptions Prescriptions: No Action hydrochlorothiazide 25 mg tablet 25 mg PO DAILY pravastatin 40 mg tablet 40 mg PO DAILY Excedrin Extra Strength 250-250-65 mg tablet 1 tab PO Q4-6H PRN tramadol 50 mg tablet 50 mg PO BID Vision Formula (with lutein) 300 mcg-200 mg-27 mg-2 mg tablet 1 tab PO DAILY Rx Instructions: administer after a meal timolol maleate 0.5 % drops 1 drp OP BID Patient Comments: INSTILL 1 DROP IN BOTH EYES TWICE DAILY tramadol 50 mg tablet 50 mg PO Q8H PRN (Reason: pain) Qty: 40 0RF ondansetron 4 mg tablet,disintegrating 4 mg PO Q6H PRN (Reason: nausea and vomiting) Qty: 10 0RF methocarbamol 750 mg tablet 1,500 mg PO TID 5 Days Qty: 30 0RF levothyroxine 88 mcg tablet 88 mcg PO DIRECTED Patient Comments: TAKE ONE TABLET BY MOUTH EVERY DAY Referrals Follow up/Referrals: Percy Del Cid [Primary Care Provider, Medical] - See instructions Clinical Impressions Clinical Impression: Brain mass Instructions Patient Instructions: DI for Brain Tumor Print Language Print Language: Wallisian Discharge ED Provider: Luiz Torres General Adult HPI <Rafaela Metzger APRN - Last Filed: 05/23/25 18:01> General Chief complaint: Neuro Symptoms/Deficit Stated complaint: Disoriented Time Seen by Provider: 05/23/25 14:46 Mode of Arrival: Ambulatory Source of Information: Patient Description of Symptoms (Recalled from ER Triage Doc. by RN): pt states over the last 10d she has had worsening of finding her words and being able to think straight. pt also c/o weakness and nausea. pt states this has been ongoing since a fall in Dec. when she hit her head. pt denies pain or any other symptoms. pt is concerned she has a intermediate concussion. Related Data Home Medications ?Medication ?Instructions ?Recorded ?Confirmed sucxeob-dumvqlttoyrwx-wnybgavq 250 1 tab PO Q4-6H PRN 09/17/21 04/05/25 mg-250 mg-65 mg tablet (Excedrin Extra Strength) hydrochlorothiazide 25 mg tablet 25 mg PO DAILY 04/05/25 pravastatin 40 mg tablet 40 mg PO DAILY 09/17/2103/22 tramadol 50 mg tablet 50 mg PO BID 09/17/21 timolol maleate 0.5 % eye drops 1 drp ophthalmic (eye) BID 06/22/22 04/05/25 levothyroxine 88 mcg tablet 88 mcg PO DIRECTED 10/2204/05/25 vit A 300 mcg-C 200 mg-E 27 1 tab PO DAILY 01/22/25 mg-lutein 2 mg and minerals tablet (Vision Formula (with lutein)) Previous Rx's ?Medication ?Instructions ?Recorded methocarbamol 750 mg tablet 1,500 mg (2 x 750 mg) PO T ID 5 01/17/25 days #30 tabs ondansetron 4 mg disintegrating 4 mg PO Q6H PRN nausea and 01/17/25 tablet vomiting #10 tabs tramadol 50 mg tablet 50 mg PO Q8H PRN pain #40 ta bs 01/23/25 Allergies Allergy/AdvReac Type Severity Reaction Status Date / Time No Known Allergies Allergy Verified 04/05/25 13:09 <Luz Arevalo (MASHA) VENEER LATHE OPERATOR - Last Filed: 05/23/25 17:19> History of Present Illness HPI narrative: 79-year-old female presents to the ED today for complaint of dizziness today. Patient states that over the past 3 weeks she cannot think straight . She says last week she has been having issues thinking clearly but says it has gotten better. She is been at work saying that she has not known the phone in office number but then she will figure it out. She states back in December she had a fall and broke her shoulder and hit her head. She cannot remember if her head was scanned or not. She states that her sister recently and over the last 6 weeks she has had trouble with word finding. She says she has not felt dizzy until today. Otherwise she has felt fine she just feels like the the thinking process is messed up from possibly her head injury in December or maybe even Alzheimer's because her sister had that. She is just concerned and wants to know. [facility] <Rafaela Metzger, VENEER LATHE OPERATOR - Last Filed: 05/23/25 18:01> [facility] Disclaimer: The information contained in this section may have been updated after the patient was seen, as this information can be updated by other users. Social History Smoking Status: Former smoker alcohol intake: never substance use type: denies use current occupational status: other Travel in the last 8 weeks?: None household members: none housing: house Have you lived/traveled outside US in past 30 days?: No Contact w/someone who lives/traveled outside US past 30 days?: No Exposure to someone with infectious disease in past 14 days?: No Do you have a fever (greater than 100.4 F or 38 C)?: No Have you tested positive for COVID-19?: No Exposed to someone with COVID-19 in past 14 days?: No Do you have a sore throat?: No Do you have a cough?: No Do you have any weakness?: No Do you have any diarrhea?: No Are you experiencing any unusual bleeding?: No Do you have any muscle aches/pain?: No Do you have any abdominal pain?: No Are you experiencing loss of taste or smell?: No Other Medical History Have you received the Pneumonia Vaccine: No <Luz Pooleanahi (ED), VENEER LATHE OPERATOR - Last Filed: 05/23/25 17:19> ROS Obtained: Yes Systems reviewed as appropriate & no additional complaints except as documented Constitutional Constitutional: Reports as per HPI Physical Exam <Luz Pooleanahi (ED), VENEER LATHE OPERATOR - Last Filed: 05/23/25 17:19> General General appearance: alert and in no apparent distress Head Head exam: atraumatic and normocephalic Eye Eye exam: Present normal appearance, PERRL and EOMI ENT ENT exam: Present normal oropharynx and mucous membranes moist Neck Neck exam: Present full ROM and trachea midline Respiratory Respiratory exam: Present normal lung sounds bilaterally Cardiovascular Cardiovascular exam: Present regular rate, normal rhythm, normal heart sounds, +S1 and +S2 Abdominal Exam Abdominal exam: Present soft and normal bowel sounds Extremities Exam Extremities exam: Present normal inspection, full ROM and normal capillary refill Neurological Exam Neurological exam: Present alert, oriented X3 and normal gait Skin Skin exam: Present warm, dry and intact Medical Decision Making <Rafaela Metzger, VENEER LATHE OPERATOR - Last Filed: 05/23/25 18:01> Medical Records Screening: Per USPSTF and CDC recommendations, given the prevalence of disease in our region, it is our hospital?s policy to screen for HIV and viral Hepatitis for all patients aged 18 and over and those with ongoing risk factors. Vital Signs: 05/23/25 14:05 05/23/25 14:31 05/23/25 14:37 Temperature 98.1 F 98 F Temperature Source Oral Oral Pulse Rate 53 L Pulse Rate [Left] 65 57 L Respiratory Rate 18 16 Blood Pressure 157/69 H Blood Pressure [Right Arm] 203/67 H 190/81 H Blood Pressure Mean [Right Arm] 112 117 Blood Pressure Source Blood Pressure Source [Right Arm] Automatic Cuff Automatic Cuff Blood Pressure Position Blood Pressure Position [Right Arm] Sitting Sitting 02 Sat by Pulse Oximetry 100 98 98 Oxygen Delivery Method Room Air Room Air Room Air 05/23/25 15:00 05/23/25 17:16 Temperature 98 F Temperature Source Oral Pulse Rate 53 L 53 L Pulse Rate [Left] Respiratory Rate 17 Blood Pressure 145/68 H 145/68 H Blood Pressure [Right Arm] Blood Pressure Mean [Right Arm] Blood Pressure Source Automatic Cuff Blood Pressure Source [Right Arm] Blood Pressure Position Sitting Blood Pressure Position [Right Arm] 02 Sat by Pulse Oximetry 95 Oxygen Delivery Method Room Air Lab Data Lab Results 05/23/25 14:36: WBC 6.2, RBC 4.55, Hgb 13.7, Hct 41.7, MCV 91.6, MCH 30.1, MCHC 32.9, RDW 13.9, Plt Count 278, MPV 10.6 H, Neut % (Auto) 65.6, Lymph % (Auto) 22.3, [place] % (Auto) 9.7 H, Eos % (Auto) 1.3, Baso % (Auto) 0.6, Neut # (Auto) 4.1, Lymph # (Auto) 1.4, [place] # (Auto) 0.6, Eos # (Auto) 0.1, Baso # (Auto) 0.0, PT 10.8, INR 0.97, APTT 27.1, Sodium 140, Potassium 3.9, Chloride 101, Carbon Dioxide 27, Anion Gap 15.9 H, BUN 17, Creatinine 0.90, Estimated Creat Clear 46, Estimated GFR 60, Est GFR ( Amer) 73, Glucose 85, Calcium 9.7, Magnesium 2.2, Total Bilirubin 0.6, AST 61 H, ALT 50, Alkaline Phosphatase 114, Troponin I < 0.01, Total Protein 7.9, Albumin 4.7, Globulin 3.2, Albumin/Globulin Ratio 1.5, Lipase 193 05/23/25 14:36 05/23/25 14:36 Orders (Tests/Meds): ED MEDICATIONS Discontinued Medications Generic Name Dose Route Start Last Admin Trade Name Freq PRN Reason Stop Dose Admin Iopamidol 80 ml 05/23/25 15:20 05/23/25 15:23 Iopamidol-370 (76%);100ml Bottle IV 05/23/25 15:21 80 ml ONCE ONE Administration Sodium Chloride 50 ml 05/23/25 15:20 05/23/25 15:23 0.9 % Sodium Chloride 50 Ml Vial IV 05/23/25 15:21 50 ml ONCE ONE Administration Sodium Chloride 10 ml 05/23/25 15:20 05/23/25 15:23 Sodium Chloride 0.9% 10ml Syr (Rad Only) IV 05/23/25 15:21 10 ml ONCE ONE Administration ORDERS Category Date Time Status CT angio head Stat Cat Scan 05/23/25 14:[address] angio neck Stat Cat Scan 05/23/25 14:[address] head/brain wo con Stat Cat Scan 05/23/25 14:58 Completed Complete Blood Count Auto Diff Stat Lab 05/23/25 14:36 Completed Comprehensive Metabolic Panel Stat Lab 05/23/25 14:36 Completed Lipase Stat Lab 05/23/25 14:36 Completed Magnesium Stat Lab 05/23/25 14:36 Completed PT INR [Prothrombin Time INR] Stat Lab 05/23/25 14:36 Completed PTT [Activated Partial Thrombo Time] Stat Lab 05/23/25 14:36 Completed Trop I [Troponin I] Stat Lab 05/23/25 14:36 Completed <Luz Arevalo (ED), VENEER LATHE OPERATOR - Last Filed: 05/23/25 17:19> Medical Records Medical records reviewed: Yes I reviewed the patient's medical records. [place] Inquiry Pt receiving controlled substance: No [place] was queried for this patient: No Vital Signs: 05/23/25 14:05 05/23/25 14:31 05/23/25 14:37 Temperature 98.1 F 98 F Temperature Source Oral Oral Pulse Rate 53 L Pulse Rate [Left] 65 57 L Respiratory Rate 18 16 Blood Pressure 157/69 H Blood Pressure [Right Arm] 203/67 H 190/81 H Blood Pressure Mean [Right Arm] 112 117 Blood Pressure Source Blood Pressure Source [Right Arm] Automatic Cuff Automatic Cuff Blood Pressure Position Blood Pressure Position [Right Arm] Sitting Sitting 02 Sat by Pulse Oximetry 100 98 98 Oxygen Delivery Method Room Air Room Air Room Air 05/23/25 15:00 05/23/25 17:16 Temperature 98 F Temperature Source Oral Pulse Rate 53 L 53 L Pulse Rate [Left] Respiratory Rate 17 Blood Pressure 145/68 H 145/68 H Blood Pressure [Right Arm] Blood Pressure Mean [Right Arm] Blood Pressure Source Automatic Cuff Blood Pressure Source [Right Arm] Blood Pressure Position Sitting Blood Pressure Position [Right Arm] 02 Sat by Pulse Oximetry 95 Oxygen Delivery Method Room Air Lab Data Lab Results 05/23/25 14:36: WBC 6.2, RBC 4.55, Hgb 13.7, Hct 41.7, MCV 91.6, MCH 30.1, MCHC 32.9, RDW 13.9, Plt Count 278, MPV 10.6 H, Neut % (Auto) 65.6, Lymph % (Auto) 22.3, [place] % (Auto) 9.7 H, Eos % (Auto) 1.3, Baso % (Auto) 0.6, Neut # (Auto) 4.1, Lymph # (Auto) 1.4, [place] # (Auto) 0.6, Eos # (Auto) 0.1, Baso # (Auto) 0.0, PT 10.8, INR 0.97, APTT 27.1, Sodium 140, Potassium 3.9, Chloride 101, Carbon Dioxide 27, Anion Gap 15.9 H, BUN 17, Creatinine 0.90, Estimated Creat Clear 46, Estimated GFR 60, Est GFR ( Amer) 73, Glucose 85, Calcium 9.7, Magnesium 2.2, Total Bilirubin 0.6, AST 61 H, ALT 50, Alkaline Phosphatase 114, Troponin I < 0.01, Total Protein 7.9, Albumin 4.7, Globulin 3.2, Albumin/Globulin Ratio 1.5, Lipase 193 Orders (Tests/Meds): ED MEDICATIONS Discontinued Medications Generic Name Dose Route Start Last Admin Trade Name Freq PRN Reason Stop Dose Admin Iopamidol 80 ml 05/23/25 15:20 05/23/25 15:23 Iopamidol-370 (76%);100ml Bottle IV 05/23/25 15:21 80 ml ONCE ONE Administration Sodium Chloride 50 ml 05/23/25 15:20 05/23/25 15:23 0.9 % Sodium Chloride 50 Ml Vial IV 05/23/25 15:21 50 ml ONCE ONE Administration Sodium Chloride 10 ml 05/23/25 15:20 05/23/25 15:23 Sodium Chloride 0.9% 10ml Syr (Rad Only) IV 05/23/25 15:21 10 ml ONCE ONE Administration ORDERS Category Date Time Status CT angio head Stat Cat Scan 05/23/25 14:[address] angio neck Stat Cat Scan 05/23/25 14:[address] head/brain wo con Stat Cat Scan 05/23/25 14:58 Completed Complete Blood Count Auto Diff Stat Lab 05/23/25 14:36 Completed Comprehensive Metabolic Panel Stat Lab 05/23/25 14:36 Completed Lipase Stat Lab 05/23/25 14:36 Completed Magnesium Stat Lab 05/23/25 14:36 Completed PT INR [Prothrombin Time INR] Stat Lab 05/23/25 14:36 Completed PTT [Activated Partial Thrombo Time] Stat Lab 05/23/25 14:36 Completed Trop I [Troponin I] Stat Lab 05/23/25 14:36 Completed Medical Decision Narrative: patient is a 79-year-old female presenting to the emergency department for evaluation of having memory problems intermittently over the past 3 to 6 weeks. She says she is having word finding since December when she fell and hit her head. Patient is hemodynamically stable and nontoxic-appearing upon arrival, afebrile. Differential diagnosis includes Alzheimer's, dementia, brain mass, CVA, TIA among others. Workup will be conducted with hematologic labs, specific imaging. No interventions here in the ED. Dr. Torres and I talked the patient about her results. She wants to think about the masses and decide what to do about them. Dr. Torres discussed that she needs an MRI for these. Patient wants to see her PCP for follow-up for this. We do have low suspicion for a TIA. Her ABCD 2 score is 3 which is low. Patient is alert and oriented x 4. She just wants some time to think about this before she does anything about it. She does not want to do this today she does want to go home. Patient is safe for discharge home. <Luiz Torres MD - Last Filed: 05/23/25 17:39> Vital Signs: 05/23/25 14:05 05/23/25 14:31 05/23/25 14:37 Temperature 98.1 F 98 F Temperature Source Oral Oral Pulse Rate 53 L Pulse Rate [Left] 65 57 L Respiratory Rate 18 16 Blood Pressure 157/69 H Blood Pressure [Right Arm] 203/67 H 190/81 H Blood Pressure Mean [Right Arm] 112 117 Blood Pressure Source Blood Pressure Source [Right Arm] Automatic Cuff Automatic Cuff Blood Pressure Position Blood Pressure Position [Right Arm] Sitting Sitting 02 Sat by Pulse Oximetry 100 98 98 Oxygen Delivery Method Room Air Room Air Room Air 05/23/25 15:00 05/23/25 17:16 Temperature 98 F Temperature Source Oral Pulse Rate 53 L 53 L Pulse Rate [Left] Respiratory Rate 17 Blood Pressure 145/68 H 145/68 H Blood Pressure [Right Arm] Blood Pressure Mean [Right Arm] Blood Pressure Source Automatic Cuff Blood Pressure Source [Right Arm] Blood Pressure Position Sitting Blood Pressure Position [Right Arm] 02 Sat by Pulse Oximetry 95 Oxygen Delivery Method Room Air Lab Data Lab Results 05/23/25 14:36: WBC 6.2, RBC 4.55, Hgb 13.7, Hct 41.7, MCV 91.6, MCH 30.1, MCHC 32.9, RDW 13.9, Plt Count 278, MPV 10.6 H, Neut % (Auto) 65.6, Lymph % (Auto) 22.3, [place] % (Auto) 9.7 H, Eos % (Auto) 1.3, Baso % (Auto) 0.6, Neut # (Auto) 4.1, Lymph # (Auto) 1.4, [place] # (Auto) 0.6, Eos # (Auto) 0.1, Baso # (Auto) 0.0, PT 10.8, INR 0.97, APTT 27.1, Sodium 140, Potassium 3.9, Chloride 101, Carbon Dioxide 27, Anion Gap 15.9 H, BUN 17, Creatinine 0.90, Estimated Creat Clear 46, Estimated GFR 60, Est GFR ( Amer) 73, Glucose 85, Calcium 9.7, Magnesium 2.2, Total Bilirubin 0.6, AST 61 H, ALT 50, Alkaline Phosphatase 114, Troponin I < 0.01, Total Protein 7.9, Albumin 4.7, Globulin 3.2, Albumin/Globulin Ratio 1.5, Lipase 193 Orders (Tests/Meds): ED MEDICATIONS Discontinued Medications Generic Name Dose Route Start Last Admin Trade Name Cassidy PRN Reason Stop Dose Admin Iopamidol 80 ml 05/23/25 15:20 05/23/25 15:23 Iopamidol-370 (76%);100ml Bottle IV 05/23/25 15:21 80 ml ONCE ONE Administration Sodium Chloride 50 ml 05/23/25 15:20 05/23/25 15:23 0.9 % Sodium Chloride 50 Ml Vial IV 05/23/25 15:21 50 ml ONCE ONE Administration Sodium Chloride 10 ml 05/23/25 15:20 05/23/25 15:23 Sodium Chloride 0.9% 10ml Syr (Rad Only) IV 05/23/25 15:21 10 ml ONCE ONE Administration ORDERS Category Date Time Status CT angio head Stat Cat Scan 05/23/25 14:[address] angio neck Stat Cat Scan 05/23/25 14:[address] head/brain wo con Stat Cat Scan 05/23/25 14:58 Completed Complete Blood Count Auto Diff Stat Lab 05/23/25 14:36 Completed Comprehensive Metabolic Panel Stat Lab 05/23/25 14:36 Completed Lipase Stat Lab 05/23/25 14:36 Completed Magnesium Stat Lab 05/23/25 14:36 Completed PT INR [Prothrombin Time INR] Stat Lab 05/23/25 14:36 Completed PTT [Activated Partial Thrombo Time] Stat Lab 05/23/25 14:36 Completed Trop I [Troponin I] Stat Lab 05/23/25 14:36 Completed Critical Care <Luiz Torres MD - Last Filed: 05/23/25 17:39> Critical Care Time Critical Care Time: No
[2025-05-23 14:56] LABS: Albumin Level 4.7 g/dl (3.5-5.0); Chloride 101 mmol/L (98-107); Potassium 3.9 mmoL/L (3.5-5.1); Sodium 140 mmol/L (136-145)
--- NOTE | 2025-05-23 14:58 | CT_ITS ---
PROCEDURE INFORMATION: Exam: CT Head Without Contrast Exam date and time: 05/23/2025 3:19 PM Age: 79 years old Clinical indication: Altered mental status/memory loss TECHNIQUE: Imaging protocol: Computed tomography of the head without contrast. Radiation optimization: All CT scans at this facility use at least one of these dose optimization techniques: automated exposure control; mA and/or kV adjustment per patient size (includes targeted exams where dose is matched to clinical indication); or iterative reconstruction. COMPARISON: CT HEAD/BRAIN WO CON 01/17/2025 1:14 PM FINDINGS: Brain: Poorly defined masslike densities are seen in the left parietal and occipital lobes, with central hypodensity. This appearance is nonspecific, but primary concern is for underlying mass lesion or lesions. Correlation with follow-up gadolinium enhanced MRI is recommended for further characterization. There is no acute intracranial hemorrhage. There is no midline shift. Note is made of left ventricular effacement involving the posterior body, atrium and occipital. No evidence of ventricular entrapment. No abnormal extra-axial collection is seen. Cerebral ventricles: See Brain finding. Paranasal sinuses: The visualized sinuses are unremarkable. Mastoid air cells: There is no mastoid effusion detected. Bones: No calvarial fracture. No destructive osseous lesions identified. Soft tissues: Unremarkable. Vasculature: Atherosclerotic vascular disease is noted at the level of the skull base. IMPRESSION: Poorly defined masslike densities are seen in the left parietal and occipital lobes, with central hypodensity. This appearance is nonspecific, but primary concern is for underlying mass lesion or lesions. Correlation with follow-up gadolinium enhanced MRI is recommended for further characterization.
[2025-05-23 14:59] LABS: Alanine Aminotransferase 50 U/L (12-78); Albumin/Globulin Ratio 1.5 (1.1-1.8); Alkaline Phosphatase 114 U/L (38-126); Anion Gap 15.9 mEq/L (5-15); Aspartate Amino Transferase 61 U/L (14-36); Bilirubin,Total 0.6 mg/dl (0.2-1.3); Blood Urea Nitrogen 17 mg/dl (7-17); Calcium 9.7 mg/dl (8.4-10.2); Carbon Dioxide 27 mmol/L (22.0-30.0); Creatinine Clearance Estimated 46 mL/min (50-200); Creatinine,Serum 0.90 mg/dl (0.52-1.04); Estimated Glomerular Filt Rate 60 ml/min (>60); GFR (African American) 73 ML/MIN (>60); Globulin 3.2 g/dL (1.3-3.2); Glucose 85 mg/dl (74-100); Total Protein,Serum 7.9 g/dl (6.3-8.2)
--- NOTE | 2025-05-23 14:59 | CT_ITS ---
PROCEDURE INFORMATION: Exam: CTA Neck With Contrast Exam date and time: 05/23/2025 3:21 PM Age: 79 years old Clinical indication: Memory loss; Additional info: Dizzy TECHNIQUE: Imaging protocol: Computed tomographic angiography of the neck with contrast. Exam focused on the cervical segments of the vasculature. 3D rendering (Not supervised by radiologist): MIP and/or 3D reconstructed images were created by the technologist. Radiation optimization: All CT scans at this facility use at least one of these dose optimization techniques: automated exposure control; mA and/or kV adjustment per patient size (includes targeted exams where dose is matched to clinical indication); or iterative reconstruction. Contrast material: ISOVUE; Contrast volume: 80 ml; Contrast route: INTRAVENOUS (IV); COMPARISON: CT ANGIO NECK 05/23/2025 3:21 PM FINDINGS: Right common carotid artery: No stenosis. No dissection or occlusion. Right internal carotid artery: Calcified plaque causes mild right ICA stenosis. Right external carotid artery: No occlusion or stenosis of the origin. Left common carotid artery: No stenosis. No dissection or occlusion. Left internal carotid artery: Calcified plaque causes mild left ICA stenosis. Left external carotid artery: No occlusion or stenosis of the origin. Right vertebral artery: No stenosis. No dissection or occlusion. Left vertebral artery: No stenosis. No dissection or occlusion. Soft tissues: Normal. No significant soft tissue swelling. Bones/joints: No acute fracture. IMPRESSION: Mild ICA stenosis bilaterally. REFERENCES: NASCET CRITERIA. The degree of stenosis in the cervical segment of the internal carotid artery is based on NASCET criteria. Normal is no stenosis. Mild is less than 50% stenosis. Moderate is 50-69% stenosis. Severe is 70% to 99% stenosis. Total occlusion is no detectable patent lumen.
--- NOTE | 2025-05-23 14:59 | CT_ITS ---
PROCEDURE INFORMATION: Exam: CTA Head With Contrast, Arteriography Exam date and time: 05/23/2025 3:21 PM Age: 79 years old Clinical indication: Memory loss; Additional info: Dizzy TECHNIQUE: Imaging protocol: Computed tomographic angiography of the head with contrast. Exam focused on the arteries. 3D rendering (Not supervised by radiologist): MIP and/or 3D reconstructed images were created by the technologist. Radiation optimization: All CT scans at this facility use at least one of these dose optimization techniques: automated exposure control; mA and/or kV adjustment per patient size (includes targeted exams where dose is matched to clinical indication); or iterative reconstruction. Contrast material: ISOVUE; Contrast volume: 80 ml; Contrast route: INTRAVENOUS (IV); COMPARISON: CT HEAD/BRAIN WO CON 05/23/2025 3:19 PM FINDINGS: ANTERIOR CIRCULATION: Right internal carotid artery: Calcified plaque causes mild stenosis of the right intracranial ICA. Right middle cerebral artery: No occlusion or significant stenosis. No aneurysm. Right anterior cerebral artery: No occlusion or significant stenosis. No aneurysm. Left internal carotid artery: Calcified plaque causes mild stenosis of the left intracranial ICA. Left middle cerebral artery: No occlusion or significant stenosis. No aneurysm. Left anterior cerebral artery: No occlusion or significant stenosis. No aneurysm. POSTERIOR CIRCULATION: Right vertebral artery: No occlusion or significant stenosis. No aneurysm. Left vertebral artery: No occlusion or significant stenosis. No aneurysm. Basilar artery: No occlusion or significant stenosis. No aneurysm. Right posterior cerebral artery: No occlusion or significant stenosis. No aneurysm. Left posterior cerebral artery: No occlusion or significant stenosis. No aneurysm. Brain: There are two peripherally enhancing, centrally hypodense lesions located in the left parietal and occipital lobes, each measuring roughly 3 cm, their peripheral margins poorly outlined by CT. There is suspected surrounding vasogenic edema. Recommend follow-up gadolinium enhanced MRI for further characterization. There is no midline shift. Cerebral ventricles: There is mild effacement of the posterior body, atrium and occipital horn of the left lateral ventricle. Bones/joints: Unremarkable. No acute fracture. Soft tissues: Unremarkable. IMPRESSION: 1. 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 2. Two peripherally enhancing, centrally hypodense lesions located in the left parietal and occipital lobes, each measuring roughly 3 cm, their peripheral margins poorly outlined by CT, with suspected surrounding vasogenic edema. Recommend follow-up gadolinium enhanced MRI for further characterization.
[2025-05-23 15:00] VITALS: BP 145/68; PULSE 53; O2SAT 95
[2025-05-23 15:03] LABS: Hematocrit 41.7 % (37.0-47.0); Hemoglobin 13.7 g/dL (12.2-16.2); Immature Granulocytes % 0.5 %; Mean Corpuscular HGB Conc 32.9 g/dL (31.8-35.4); Mean Corpuscular Hemoglobin 30.1 pg (27.0-31.2); Mean Corpuscular Volume 91.6 fl (81-99); Nucleated Red Blood Cells % 0 %; Platelet Count 278 K/mm3 (142-424); Red Blood Count 4.55 M/mm3 (4.20-5.40); Red Cell Distribution Width-SD 47.8 fL; White Blood Count 6.2 K/mm3 (4.8-10.8)
[2025-05-23 15:15] LABS: Activated Partial Thrombo Time 27.1 seconds (22.8-30.6); INR 0.97 (0.9-1.1); Prothrombin Time 10.8 seconds (10.1-12.5)
[2025-05-23 15:20] LABS: Lipase 193 U/L (23-300)
[2025-05-23 15:21] LABS: Magnesium 2.2 mg/dl (1.6-2.3)
[2025-05-23] MEDS: IOPAMIDOL-370 (76%);100ML BOTTLE 80 ML IV (15:23)
[2025-05-23] MEDS: 0.9 % SODIUM CHLORIDE 50 ML VIAL IV (15:23)
[2025-05-23] MEDS: SODIUM CHLORIDE 0.9% 10ML SYR (RAD ONLY) 10 ML IV (15:23)
--- NOTE | 2025-05-23 15:36 | ECG_ITS ---
APPROVED REPORT Exam: Resting ECG HR:52 bpm ECG Measurements Heart Rate 52 AXES WY 167 P 69 QRSd 88 QRS 22 QT 425 T 66 QTc 406 Conclusion SINUS BRADYCARDIA POSSIBLE RIGHT VENTRICULAR CONDUCTION DELAY [RSR (QR) IN V1/V2] BORDERLINE ECG UNCONFIRMED REPORT Electronically signed by : Willie Vincent, 05/23/2025 21:38:20
[2025-05-23 15:42] LABS: Troponin I < 0.01 ng/ml (0.00-0.034)
[2025-05-23 17:16] VITALS: BP 145/68; PULSE 53; RESP 17; TEMP 36.6; O2SAT 98
== END 2025-05-23 17:29 | disposition home or self-care (01) ==
PROVIDERS: Nurse Practitioner; Emergency Provider Emergency Medicine; PCP Family Medicine
DX: G93.89 Other specified disorders of brain (principal); R47.01 Aphasia; R53.1 Weakness
CPT/HCPCS: 70450; 70496; 70498; 80053; 83690; 83735; 84484; 85025; 85610; 85730; 93005; 99285; Q9967

== ENCOUNTER 2025-05-29 16:24 | Outpatient (CLI) | payer MEDICARE, SELFPAY ==
--- OUTSIDE RECORDS SUMMARY | 2008-06-05 20:00 | XMS_ITS | Continuity of Care Document ---
Author Organization [facility] Address [address] [place] [address] Phone Care Team Providers Care Dead Mail Checker Name Role Phone No Information Unavailable Unavailable Advance Directives Directive Yes / No Effective Date File Name No Information Encounters Encounter Description Practice Location Reason(s) For Visit Diagnoses Date Provider Providers Copied on Encounter [facility] , [address], [place], [address], [place] tel:[phone] RADHA Méndez Ash No Information No Information Family History Family Member Type Diagnosis Age At Onset No Information Payers Payer name Insurance type Covered republican ID Authoriza tion(s) No Information Social History Type Description Quantity Date Captured Comments Sex Female Smoking Status No Information Chief Complaint And Reason For Visit No Information Reason For Referral Reason For Referral No Information History Of Present Illness Encounter Date Complaint History Of Prese nt Illness No Information Functional Status Date Functional Assessmen t No Information Instructions Date Instruction Additional Infor mation No Information Assessments Type Assessment Date No Information Patient Care Teams Name Effective Dates (start - stop) Status Members No Information
--- NOTE | 2025-05-29 16:27 | MR_ITS ---
PROCEDURE INFORMATION: Exam: MR Head Without and With Contrast Exam date and time: 05/29/2025 5:20 PM Age: 79 years old Clinical indication: Abnormal findings; Mass, lump, or localized swelling of head; Head, generalized; Additional info: Contusion mass on CT TECHNIQUE: Imaging protocol: Magnetic resonance imaging of the head without and with contrast. Contrast material: ISOVUE; Contrast volume: 14 ml; Contrast route: IV; COMPARISON: CT ANGIO HEAD 05/23/2025 3:21 PM FINDINGS: Brain: 3.1 x 2.6 x 3.5 cm mass with thick rim enhancement and internal enhancing septations in the left frontotemporoparietal distribution. It shows internal T1 hypointense/T2 hyperintense/nonenhancing elements suggesting necrosis, and internal foci of susceptibility on gradient echo suggesting small elements of prior internal hemorrhage, with no features to favor acute hemorrhage currently. Immediately inferior to this is a 2.8 x 2.6 x 2.7 cm mass in the temporal-occipital distribution with similar features. Just medial to this 2nd lesion is a smaller 11 mm enhancing lesion. The relatively minor vasogenic edema and localized clustering of multiple lesions is somewhat atypical for metastasis, favoring multifocal primary RF MANAGER malignancy. Adjacent local cortical thickening and T2/FLAIR hyperintensity without enhancement, potentially local tumor infiltration. No gross interval changes appreciated from head CT angiogram 05/23/2025. Recommend neurosurgical consult. There is mild local mass effect with partial effacement of the left lateral ventricular trigone, but no midline shift or herniation. Mild generalized cerebral/cerebellar atrophy. Mild frontal and parietal white matter T2/FLAIR hyperintense foci which are nonspecific but most commonly associated with chronic microvascular ischemia in this age group. There are no extra-axial fluid collections. No evidence of acute intracranial ischemia/infarct. IACs are normal. Cerebral ventricles: Nondilated ventricles. Pituitary gland and sella: Sella normal. Bones: No acute osseous abnormalities. Paranasal sinuses: Paranasal sinuses are clear. Mastoid air cells: Mastoid air cells are clear. Orbital cavities: No acute intraorbital findings. Prior bilateral ocular cataract surgery. Vasculature: Normal flow voids are maintained in the major arterial vascular distributions and dural venous sinuses. Soft tissues: No acute soft tissue abnormalities. IMPRESSION: 1. 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 Recommend neurosurgical consult. 2. There is only minor local mass effect with no midline shift or herniation. The larger lesions show foci of internal susceptibility suggesting mildly hemorrhagic lesions, with no features to favor acute bleed/hematoma currently. 3. Underlying atrophy and microvascular changes consistent with advanced age.
[2025-05-29] MEDS: SODIUM CHLORIDE 0.9% 10ML SYR (RAD ONLY) 10 ML IV (18:00)
[2025-05-29] MEDS: GADOTERIDOL INJ 20ML SYRINGE 14 ML IV (18:00)
== END 2025-05-29 23:59 | disposition home or self-care (01) ==
LOC: RAD 16:24
PROVIDERS: PCP Family Medicine; Visit Provider Family Medicine
DX: S06.33AA Contusion and laceration of cerebrum, unspecified, with loss of consciousness status unknown, initial encounter (principal); G93.89 Other specified disorders of brain; G31.9 Degenerative disease of nervous system, unspecified; R90.89 Other abnormal findings on diagnostic imaging of central nervous system
CPT/HCPCS: 70553; A9576